=== PATIENT | female | born 1945 | race Caucasian/White ===

== ENCOUNTER 2016-12-20 10:19 | Emergency (ER) | payer MEDICARE, BC ==
[2016-12-20] MEDS ORDERED: ASPIRIN E.C. 8181 MG PO (10:34)
[2016-12-20] MEDS ORDERED: ARICEPT5 M1 PO (10:34)
[2016-12-20] MEDS ORDERED: CEFDINIR300 MG PO (12:56)
[2016-12-20 14:00] VITALS: BP 170/87
== END 2016-12-20 14:01 | disposition home or self-care (01) ==
LOC: ED 10:19
DX: R55 Syncope and collapse (principal); E86.0 Dehydration; W18.30XA Fall on same level, unspecified, initial encounter; Y92.000 Kitchen of unspecified non-institutional (private) residence as the place of occurrence of the external cause; G30.9 Alzheimer's disease, unspecified; F02.80 Dementia in other diseases classified elsewhere, unspecified severity, without behavioral disturbance, psychotic disturbance, mood disturbance, and anxiety; R11.2 Nausea with vomiting, unspecified
CPT/HCPCS: A4353; J0696; J2405; J7120

== ENCOUNTER → 2017-06-09 | Outpatient (CLI) | payer MEDICARE, BC ==
[~2017-06-09] MED LIST: ARICEPT5 M1 PO; ASPIRIN E.C. 8181 MG PO; CEFDINIR300 MG PO
== END ==
LOC: RAD 08:22
DX: N39.0 Urinary tract infection, site not specified (principal); N28.89 Other specified disorders of kidney and ureter

== ENCOUNTER → 2017-08-15 | Outpatient (CLI) | payer MEDICARE, BC | LOC: MAMMO 09:49 → RAD 10:00 | DX: Z12.31 Encounter for screening mammogram for malignant neoplasm of breast (principal) ==

== ENCOUNTER → 2019-03-26 | Outpatient (CLI) | payer MEDICARE, BC | LOC: MAMMO 08:46 | DX: Z12.31 Encounter for screening mammogram for malignant neoplasm of breast (principal) ==

== ENCOUNTER 2021-02-12 08:13 | Emergency (ER) | payer MEDICARE, BC ==
[~2021-02-12] VITALS: Ht 167.6 cm; Wt 73.3 kg
[2021-02-12] MEDS ORDERED: SIMVASTATIN10 M1 PO (08:29)
[2021-02-12 09:05] LABS: BASO # 0.03 (0.02-0.10); EOS # 0.11 (0.04-0.40); HEMATOCRIT 43.2 % (37.0-47.0); HEMOGLOBIN 13.9 g/dL (12.5-16.0); LYMPH# 1.64 (1.50-4.00); MEAN CELL VOLUME 91 fl (78-100); MEAN CORPUSCULAR HEMOGLOBIN 29 pg (27-31); MEAN CORPUSCULAR HGB CONC 32 g/dL (33-37); MEAN PLATELET VOLUME 9.1 fl (7.4-10.4); MONO # 0.73 (0.20-0.80); NEU # 8.03 (1.40-6.50); PLATELET COUNT 347 K/mm3 (130-400); RED BLOOD COUNT 4.75 M/mm3 (4.10-5.30); RED CELL DISTRIBUTION WIDTH 13.3 % (11.5-14.5); WHITE BLOOD COUNT 10.6 K/mm3 (4.8-10.8)
[2021-02-12 09:12] LABS: ALBUMIN 3.5 g/dL (3.4-4.8)
[2021-02-12 09:13] LABS: POTASSIUM 4.2 mmol/L (3.5-5.1)
[2021-02-12 09:14] LABS: CALCIUM 9.4 mg/dL (8.3-10.5)
[2021-02-12 09:15] LABS: TOTAL PROTEIN 6.7 g/dL (6.2-8.1)
[2021-02-12 09:17] LABS: TOTAL BILIRUBIN 0.6 mg/dL (0.2-1.2)
[2021-02-12 11:02] LABS: URINE APPEARANCE CLOUDY; URINE BILIRUBIN NEGATIVE (NEGATIVE); URINE BLOOD 50 ery/uL (NEGATIVE); URINE COLOR YELLOW; URINE GLUCOSE NEGATIVE (NEGATIVE); URINE KETONE NEGATIVE (NEGATIVE); URINE LEUKOCYTE ESTERASE 2+ (NEGATIVE); URINE NITRATE POSITIVE (NEGATIVE); URINE PROTEIN(semi-quant) 1+ mg/dL (NEGATIVE); URINE UROBILINOGEN NORMAL (NORMAL)
[2021-02-12 11:03] LABS: URINE MUCUS PRESENT (NOT PRESENT); URINE WBC >50 /hpf (0-3)
[2021-02-12] MEDS ORDERED: COL-RITE100 M1 PO (11:31)
[2021-02-12] MEDS ORDERED: MACROBID 100 M100 MG PO (11:31)
[2021-02-12 11:53] VITALS: BP 132/72
== END 2021-02-12 11:54 | disposition home or self-care (01) ==
LOC: ED 08:13
PROVIDERS: Nurse Practitioner
DX: N30.90 Cystitis, unspecified without hematuria (principal)
CPT/HCPCS: J2405; J7030; Q9967

== ENCOUNTER 2021-06-14 08:54 | Emergency (ER) | payer MEDICARE, BC ==
[~2021-06-14 08:54] MED LIST changes: +COL-RITE100 M1 PO; +MACROBID 100 M100 MG PO; +SIMVASTATIN10 M1 PO
[2021-06-14] MEDS ORDERED: COLACE100 M1 PO (09:09)
[2021-06-14] MEDS ORDERED: AZO-CRANBERRY450 MG PO (09:10)
[2021-06-14 09:21] VITALS: BP 169/74
[2021-06-14 09:31] LABS: BASO # 0.04 K/mm3 (0.02-0.10); EOS # 0.12 K/mm3 (0.04-0.40); EOS % 1.4 % (1.0-5.0); HEMATOCRIT 44.7 % (37.0-47.0); HEMOGLOBIN 14.4 g/dL (12.5-16.0); LYMPH# 1.88 K/mm3 (1.50-4.00); MEAN CELL VOLUME 92 fl (78-100); MEAN CORPUSCULAR HEMOGLOBIN 30 pg (27-31); MEAN CORPUSCULAR HGB CONC 32 g/dL (33-37); NEU # 5.66 K/mm3 (1.40-6.50); PLATELET COUNT 399 K/mm3 (130-400); RED BLOOD COUNT 4.85 M/mm3 (4.10-5.30); RED CELL DISTRIBUTION WIDTH 13.7 % (11.5-14.5); WHITE BLOOD COUNT 8.5 K/mm3 (4.8-10.8)
[2021-06-14 09:40] LABS: CALCIUM 9.4 mg/dL (8.3-10.5)
[2021-06-14 10:27] LABS: URINE APPEARANCE HAZY; URINE COLOR YELLOW; URINE GLUCOSE 50 mg/dL mg/dL (NEGATIVE); URINE PROTEIN(semi-quant) 2+ mg/dL (NEGATIVE)
[2021-06-14 10:28] LABS: URINE BILIRUBIN NEGATIVE (NEGATIVE); URINE BLOOD TRACE (NEGATIVE); URINE KETONE NEGATIVE (NEGATIVE); URINE LEUKOCYTE ESTERASE 2+ (NEGATIVE); URINE NITRATE NEGATIVE (NEGATIVE); URINE UROBILINOGEN NORMAL (NORMAL); URINE WBC 31-50 /hpf (0-3)
[2021-06-14] MEDS ORDERED: CEPHALEXIN500 M1 PO (11:04)
== END 2021-06-14 11:26 | disposition home or self-care (01) ==
LOC: ED 08:54
PROVIDERS: Nurse Practitioner
DX: R55 Syncope and collapse (principal); N30.90 Cystitis, unspecified without hematuria; F03.90 Unspecified dementia, unspecified severity, without behavioral disturbance, psychotic disturbance, mood disturbance, and anxiety